=== PATIENT | female | born 1965 | race Caucasian/White ===

== ENCOUNTER → 2021-12-11 08:46 | Outpatient (BNVA) | payer OTHER, SELFPAY | PROVIDERS: Visit Provider Physician Assistant Medical | DX: S89.90XD Unspecified injury of unspecified lower leg, subsequent encounter (principal); Y04.8XXA Assault by other bodily force, initial encounter | CPT/HCPCS: 73564; 99203 ==

== ENCOUNTER → 2021-12-16 09:22 | Outpatient (BNVA) | payer OTHER, SELFPAY | PROVIDERS: Visit Provider Physician Assistant Medical | DX: S89.91XA Unspecified injury of right lower leg, initial encounter (principal); X58.XXXA Exposure to other specified factors, initial encounter | CPT/HCPCS: 99213 ==

== ENCOUNTER → 2021-12-25 15:27 | Outpatient (BNVA) | payer OTHER, SELFPAY | PROVIDERS: Visit Provider Physician Assistant | DX: M23.91 Unspecified internal derangement of right knee (principal) | CPT/HCPCS: 99214 ==

== ENCOUNTER 2022-01-07 07:24 | Outpatient (REF) | payer OTHER, BC, SELFPAY ==
--- NOTE | ~2022-01-07 | MR_ITS ---
EXAMINATION: MR KNEE WITHOUT CONTRAST, RIGHT CLINICAL INFORMATION: Right knee pain, swelling, instability, clicking following a fall on 12/11/2021. Evaluate for internal derangement, medial collateral ligament injury. COMPARISON: Right knee radiographs dated 12/11/2021. TECHNIQUE: MRI of the knee without contrast was performed using routine sequences on a high-field scanner. FINDINGS: MENISCI: Medial Meniscus: Intact. Lateral Meniscus: Oblique tibial articular surface/inner margin tear of the anterior horn and anterior body with prominent intrasubstance degenerative signal extending more posteriorly within the meniscal body. There is an anterolateral parameniscal cyst measuring up to 2.8 x 0.7 x 1.2 cm. LIGAMENTS: Cruciate: Intact Collateral: Mild edema adjacent to the medial collateral ligament consistent with a grade 1 sprain/partial tear. Intact fibular collateral ligament. EXTENSOR MECHANISM: Mildly elevated TT-TG distance measuring 1.8 cm. No patella maggie. Intact quadriceps and patellar tendons. ARTICULAR CARTILAGE/BONE: Patellofemoral Compartment: Intact articular cartilage. Medial Compartment: Intact articular cartilage. Lateral Compartment: Intact articular cartilage. Prominent marrow edema within the anterior aspect of the lateral tibial plateau without an associated fracture line, consistent with an osseous contusion. JOINT FLUID AND BURSAE: Trace joint effusion and trace Ramey's cyst. MR/MR knee RT wo con IMPRESSION: 1. Osseous contusion at the anterior aspect of the lateral tibial plateau without an associated fracture line. 2. Oblique tibial articular surface/inner margin tear of the lateral meniscus anterior horn extending to the anterior aspect of the meniscal body with prominent intrasubstance degenerative signal more posteriorly within the meniscal body. Adjacent parameniscal cyst measuring up to 2.8 cm in greatest dimension. 3. Probable grade 1 sprain/partial tear of the medial collateral ligament. 4. Mildly elevated TT-TG distance. Intact quadriceps and patellar tendons. 5. Trace joint effusion and trace Ramey's cyst.
== END 2022-01-07 07:25 | disposition home or self-care (01) ==
LOC: HO.MRI 07:24
PROVIDERS: PCP Nurse Practitioner Family; Visit Provider Physician Assistant Medical
DX: M23.91 Unspecified internal derangement of right knee (principal); S89.90XA Unspecified injury of unspecified lower leg, initial encounter
CPT/HCPCS: 73721

== ENCOUNTER → 2022-01-09 15:22 | Outpatient (BNVA) | payer OTHER, SELFPAY | PROVIDERS: PCP Nurse Practitioner Family; Visit Provider Physician Assistant | DX: S83.281D Other tear of lateral meniscus, current injury, right knee, subsequent encounter (principal); S83.411D Sprain of medial collateral ligament of right knee, subsequent encounter; S80.01XD Contusion of right knee, subsequent encounter; W18.30XD Fall on same level, unspecified, subsequent encounter | CPT/HCPCS: 99214 ==

== ENCOUNTER → 2022-01-27 09:35 | Outpatient (BNVA) | payer OTHER, SELFPAY | PROVIDERS: PCP Nurse Practitioner Family; Visit Provider Physician Assistant Medical | DX: S83.206D Unspecified tear of unspecified meniscus, current injury, right knee, subsequent encounter (principal); S83.411D Sprain of medial collateral ligament of right knee, subsequent encounter; S80.01XD Contusion of right knee, subsequent encounter; W18.30XD Fall on same level, unspecified, subsequent encounter | CPT/HCPCS: 99213 ==